=== PATIENT | male | born 1990 | race Caucasian/White ===

== ENCOUNTER 2016-10-08 17:10 | Emergency (ER) | payer MEDICAID ==
[~2016-10-08] VITALS: Ht 149.9 cm; Wt 84.8 kg
[~2016-10-08 17:10] MED LIST: MINOCYCLINE 10100 MG PO; MINOCYCLINE HCL50 MG PO; PRILOSEC OTC20 MG PO; PRILOSEC20 M1 PO
[2016-10-08] MEDS ORDERED: PANTOPRAZOLE SO40 M1 PO (17:34)
--- NOTE | 2016-10-08 17:46 | Emergency Room Report ---
History of Present Illness Time Seen by [id number] Presenting Problem in Triage Pt arrived:Walked Presenting Problem:PT C/O DIARRHEA AND BODYACHES FOLLOWING FOOD IMPACTION SURGERY YESTERDAY MORNING. MOM ALSO STATES THAT HE HAS THROWN UP SOME SINCE SURGERY, ALONG WITH THE DIARRHEA. MOM STATES THAT WHILE AT FOR SURGERY, THEY ALSO DIAGNOSED HIM WITH NICOLE D/T DEHYDRATION. SHE IS CONCERNED ABOUT DEHYDRATION AGAIN WITH THE VOMITING AND DIARRHEA. 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 N Clinical Suspician of Infection? N Mental Status: 1 - Regular (Normal Baseline) Sepsis Risk:Low Sepsis Risk Have you (or family members/close friends) recently traveled outside the [place]? N If Yes, where/when: Have you had exposure to infectious disease within the past month? N TB? Other? Specify: Comment The patient is brought in by mother. He had endoscopic removal of an impacted esophageal food bolus at [facility] yesterday at 2 AM. He was discharged yesterday afternoon. His symptoms had begun 9 days ago with vomiting and some diarrhea. He received an IV infusion on Sunday 5 days ago. He then had a barium swallow done on Sunday 2 days ago, which discovered the food bolus impaction. He was seen in our emergency department and then transferred to [facility] where he had it removed. He was also diagnosed with dehydration and acute kidney injury while in the hospital. Creatinine was 1.9 and had improved to 1.5 yesterday. Mother says he did well all U day yesterday and has been on clear liquids since discharge along with 1 serving of applesauce. Today however he is listless and has malaise. He complains of pain on the bilateral sides of his abdomen. He had an episode of vomiting overnight. He complained of bilateral upper arm pain and leg pain today. He has also developed diarrhea again, which had been resolved since 3 days ago. He had previously been on Prilosec for years because of severe reflux and had had a previous esophageal stretching procedure. His PPI was changed to a different medication while in the hospital. Mother has also given him Zofran at home. ALLERGIES Coded Allergies: cephalexin (Intermediate, I-RASH 10/18/15) Home Medications Reported Medications MINOCYCLINE HCL (Minocycline HCl) 50 MG PO BID Pantoprazole Sodium 40 MG PO DAILY #56 History Medical History General CAD? No Angina: No W[place]: No Hypertension? No Hyperlipidemia? No CHF? No DVT? No PE? No COPD? No Asthma? Yes Anemia? No GERD? Yes Gastric ulcers? No GI Bleed? No Hernia? No Thyroid Problems? No Hypothyroidism? No CVA? No Seizures? No Diabetes? No Renal Insuffiency? No End Stage Renal Disease? No UTI? No Stones? No GB Disease: No Nephritic Syndrome? No Asplenia? No Hepatitis? No Sickle Cell Disease? No Arthritis? No Migraines? No Cataracts? No Glaucoma? No MRSA? No HIV? No TB? No Anxiety? No Depression? No Cancer? No More? Yes Additional hx: MITRAL VALVE PROLAPSE Immunization Hx DT/Tetanus Unknown Surgical Hx Previous Surgery?Y ESOPHAGUS STRETCHED EAR TUBES FOOD IMPACTION Social History Smoking Hx Smoker: Never Smoker Tobacco: No Alcohol Alcohol: No Review of Systems All Other Systems Reviewed and Negative Constitutional malaise Gastrointestinal abdominal pain, diarrhea, vomiting Physical Exam Vital Signs Vital Signs Date Time Temp Pulse Resp B/P Pulse O2 O2 Flow FiO2 Ox Delivery Rate 10/08 1901 98.3 58 16 118/63 98 10/08 1815 18 10/08 1722 96.9 54 16 109/65 98 - WBC >12,000 or <4,000 or 10% bands? 2 or more SIRS Criteria Met? B/P:109/65 MAP:79 Creatinine >2.0? UA output<0.5ml/kg/hr for 2 hrs? Platelet count >100,000? Lactate >2.0mmol/1? INR >1.2 or PTT > than 60 sec? Evidence of Organ Dysfunction? Provider documented clinical suspician of infection? N Sepsis Criteria Count: 0 Sepsis Risk: Low Sepsis Risk General Appearance Down's syndrome Eye Exam - bilateral eye normal exam, bilateral eye PERRL, bilateral eye EOMI Ear, Nose, Throat hearing grossly normal, normal ENT inspection Neck normal inspection, non-tender, supple, full range of motion Respiratory Status Yes: trachea midline, chest symmetrical, non tender chest. No: respiratory distress. Lung Sounds bilateral: normal breath sounds, lungs clear. Cardiovascular normal exam, regular rate/rhythm, no peripheral edema, no gallop, no JVD, no murmur, no rub, normal peripheral pulses Peripheral Pulses Pulses normal Yes Gastrointestinal normal bowel sounds, soft, no organomegaly, tenderness of the lateral sides of his abdomen bilaterally as well as suprapubic/lower abdominal tenderness. 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 Yes Tj was queried for this patient? No Reason not queried - emergent pt cond=no time Results/Orders Laboratory Tests 10/08/161644: Troponin I < 0.02, Amylase 64, Lipase 159 10/08/161644: Sodium 139, Potassium 3.6, Chloride 107, Carbon Dioxide 29, BUN 14, Creatinine 1.5 H, Estimated Creat Clear 89, Estimated GFR (MDRD) 56, Glucose 82, Calcium 9.1, Total Bilirubin 0.6, AST 49 H, ALT 58, Alkaline Phosphatase 61, Total Protein 6.9, Albumin 3.4, Globulin 3.5 H, Albumin/Globulin Ratio 1.0 L, WBC 4.3 L, RBC 4.83, Hgb 17.6, Hct 50.7, MCV 105.2 H, RDW 13.8, Plt Count 176, MPV 7.9, Gran % 60.3, Gran # 2.6, Lymphocytes % 35.1, Monocytes % 4.2, Eosinophils % 0.1, Basophils % 0.4, Lymphocytes # 1.5, Monocytes # 0.2, Eosinophils # 0.0, Basophils # 0.0, PUBS MCHC 34.6, MCH 36.4 H Current Medication Orders Sig/Mackenzie Start time Last Medication Dose Route Stop Time Status Admin Morphine Sulfate 2 MG ONCE ONE 10/08 1814 DC 10/08 IV 10/08 Ondansetron HCl 4 MG ONCE ONE 10/08 1814 DC 10/08 IV 10/08 Morphine Sulfate 0 .STK-MED ONE 10/08 1808 DC .ROUTE Ondansetron HCl 0 .STK-MED ONE 10/08 1808 DC .ROUTE Sodium Chloride 1,000 ML .STK-MED ONE 10/08 1805 DC IV Sodium Chloride 10 ML PRN PRN 10/08 1800 AC IV 10/09 174 Sodium Chloride 1,000 ML .Q1H1M 10/08 1800 DC 10/08 IV 10/08 1900 1811 Sodium Chloride 10 ML PRN PRN 10/08 1800 AC IV 10/09 1747 Orders Procedure Date/time Status DIET-NOTHING BY MOUTH 10/09 B Active ELECTROCARDIOGRAM REQUEST 10/[address] ABD/PELVIS REQ 10/08 180 Complete CHEST(2 VIEWS-NOT PORTABLE) 10/08 180 Active TROPONIN I 10/08 180 Complete LIPASE 10/08 180 Complete AMYLASE 10/08 180 Complete IV SALINE LOCK 10/08 1746 Active CBC WITH AUTO DIFF 10/08 1746 Complete CHEM 12 PROFILE 10/08 1746 Complete 12 LEAD EKG-BESSON (INITIAL) 10/[address] ABD & PELVIS W/O CONTRAST 10/08 UNK Active CM/EKG CM/EKG Comments EKG interpreted by Masoud Morales MD: Rhythm: sinus bradycardia Rate: 54 [place]: LEFT Ectopy: none Conduction: RIGHT bundle branch block pattern ST Segment Changes: none T Wave Changes: none Q Waves: none Left ventricular hypertrophy No evidence of acute ischemia or injury XRAY/CT/US XRAY/CT/US CT abdomen, pelvis Comment CT scan interpreted by radiologist: Air outside of and along the distal esophagus suspicious for perforation. Progress - 7:00 PM: Call received from Dr. Chavarria. He suggests also that the air may be trapped in a thickened mucosal fold of the esophagus and not be a true perforation. 7:05 PM: Case discussed with Dr. Folres, cardiothoracic surgeon at [facility]. She will accept the patient in transfer to the emergency department. She says that they will likely repeat a barium swallow and observe overnight. Mother prefers to transfer by private vehicle. Departure Departure Disposition DC/XFER from ER to [facility]. Hosp Clinical Impression Primary Impression: Abdominal pain Qualifiers: Abdominal location: upper abdomen, unspecified Qualified Code: R10.10 - Upper abdominal pain, unspecified Condition STABLE Referrals JESSICA LIPSCOMB (Family) ED Critical Care Critical Care No
[2016-10-08 17:55] LABS: HEMOGLOBIN 17.6 g/dL (14.1-18.0); LYMPH # 1.5 K/mm3 (0.7-4.5); LYMPH % 35.1 % (10-50)
--- NOTE | 2016-10-08 19:15 | RADIOLOGY REPORT PS360 ---
CT ABD PELVIS W/O CONTRAST COMPARISON: Barium swallow 10/06/2016 HISTORY: Previous history of esophageal stricture with subsequent dilatation now presenting with chest pain following endoscopic removal of a food bolus in the distal esophagus . TECHNIQUE: Multiaxial scans obtained from the lower chest to the pelvic floor and were performed without IV or oral contrast. Sagittal and coronal reformats were evaluated as well. FINDINGS: Beginning on scans at the level of the paul and extending downward to the gastroesophageal junction there is diffuse wall thickening of the distal esophagus. There is a small para lateral channel of air to the esophageal lumen. This raises the possibility of a contained esophageal perforation secondary to the manipulation in removing the impacted food bolus. Another possibility would be air tracking along linear thickened edematous folds due to the irritation of the food being present for a long time prior to removal and/or the endoscopic procedure itself. There is no pneumomediastinum or pneumopericardium. There is mild or borderline cardio megaly. There is no pleural fluid. There may be some minimal atelectasis in the right middle lobe. The liver spleen stomach pancreas and gallbladder appear normal. The adrenal glands are normal. The kidneys are normal in size and there are no calculi and is no obstructive uropathy. Small bowel is normal. There is scattered barium in the ascending and descending colon from the recent contrast study. The urinary bladder and prostate appear normal. IMPRESSION: Diffuse esophageal wall thickening of the lower thoracic esophagus with possible small linear self-contained perforation of the mucosa versus air tracking along the thickened edematous folds. Other nonacute findings as described above.
--- NOTE | 2016-10-08 19:16 | RADIOLOGY REPORT PS360 ---
CHEST(2 VIEWS-NOT PORTABLE) COMPARISON: None HISTORY: Chest and abdominal pain following endoscopic removal of impacted food bolus distal esophagus TECHNIQUE: PA and lateral chest FINDINGS: Lung willis are well expanded and appear clear of infiltrate. There is suggestion of irregular opacity seen to the right heart border which may represent thickened edematous esophageal wall secondary to the apparent long-standing impacted food bolus and/or subsequent endoscopic manipulation. There is no pneumothorax and is no pneumomediastinum mediastinum. IMPRESSION: Question irregular opacities involving the distal esophagus otherwise essentially negative chest
[2016-10-08 19:27] VITALS: BP 118/63
== END 2016-10-08 19:30 | disposition short-term general hospital (02) ==
LOC: ER 17:10
PROVIDERS: Emergency Medicine
DX: R10.10 Upper abdominal pain, unspecified (principal)
CPT/HCPCS: J2405

== ENCOUNTER 2017-07-02 20:21 | Emergency (ER) | payer MEDICAID ==
[~2017-07-02] VITALS: Ht 149.9 cm; Wt 89.8 kg
[~2017-07-02 20:21] MED LIST changes: +PANTOPRAZOLE SO40 M1 PO
[2017-07-02] MEDS ORDERED: MINOCYCLINE 10100 MG PO (20:45)
[2017-07-02] MEDS ORDERED: CLARITIN 10MG T10 MG PO (20:46)
--- OUTSIDE RECORDS SUMMARY | 2017-07-02 20:51 | External Medical Summary Rpt ---
Author Author JOSE R Folres, [employer] Organization [employer] Address Unknown Phone Unavailable Results Urinalysis dipstick W Reflex Microscopic panel in Urine Observa Value Referen Units Interpr Notes Date tion ce etation Range Appeara CLEAR CLEAR No No No Feb 22 nce of informa informa informa 2016 Urine tion in tion in tion in 1:23 PM source source source data data data Bacteri TRACE O No No No Feb 22 a informa informa informa 2016 [Presen tion in tion in tion in 1:23 PM ce] in source source source Urine data data data sedimen t by Light microsc opy Bilirub NEGATIV NEG No No No Feb 22 in E informa informa informa 2016 [Presen tion in tion in tion in 1:23 PM ce] in source source source Urine data data data by Test strip Erythro NEGATIV NEG No No No Feb 22 cytes E informa informa informa 2016 [Presen tion in tion in tion in 1:23 PM ce] in source source source Urine data data data Color YELLOW YELLOW No No No Feb 22 of informa informa informa 2016 Urine tion in tion in tion in 1:23 PM source source source data data data Glucose NEG No No No Feb 22 [Mass/vol informati informati informati 2016 1:23 ume] in on in on in on in PM Urine by source source source Test data data data strip Ketones NEGATIV NEG mg/dL No No Feb 22 E informa informa 2016 [Presen tion in tion in 1:23 PM ce] in source source Urine data data by Automat ed test strip Mucus NEGATIV NEG No No No Feb 22 [Presen E informa informa informa 2016 ce] in tion in tion in tion in 1:23 PM Urine source source source sedimen data data data t by Light microsc opy Nitrite NEGATIV NEG No No No Feb 22 E informa informa informa 2017 [Presen tion in tion in tion in 1:23 PM ce] in source source source Urine data data data by Test strip pH of 5.0 - 8.5 No Normal No Feb 22 Urine informati informati 2017 1:23 on in on in PM source source data data Protein NEG mg/dL No No Feb 22 [Mass/vol informati informati 2017 1:23 ume] in on in on in PM Urine by source source Automated data data test strip Specific 1.005 - No Normal No Feb 22 gravity 1.030 informati informati 2017 1:23 of Urine on in on in PM source source data data Epithel OCC OCC #/hpf No No Feb 22 ial informa informa 2017 cells.s tion in tion in 1:23 PM quamous source source data data [Presen ce] in Urine sedimen t by Microsc opy high power field Urobili 0.2 NEG E.U./dL No No Feb 22 nogen informa informa 2016 [Presen tion in tion in 1:23 PM ce] in source source Urine data data by Test strip Urinalysis dipstick W Reflex Microscopic panel in Urine Observa Value Referen Units Interpr Notes Date tion ce etation Range Appeara CLEAR CLEAR No No No Feb 22 nce of informa informa informa 2017 Urine tion in tion in tion in 1:23 PM source source source data data data Bilirub NEGATIV NEG No No No Feb 22 in E informa informa informa 2016 [Presen tion in tion in tion in 1:23 PM ce] in source source source Urine data data data by Test strip Erythro NEGATIV NEG No No No Feb 22 cytes E informa informa informa 2016 [Presen tion in tion in tion in 1:23 PM ce] in source source source Urine data data data Color YELLOW YELLOW No No No Feb 22 of informa informa informa 2017 Urine tion in tion in tion in 1:23 PM source source source data data data Glucose NEG No No No Feb 22 [Mass/vol informati informati informati 2017 1:23 ume] in on in on in on in PM Urine by source source source Test data data data strip Ketones NEGATIV NEG mg/dL No No Feb 22 E informa informa 2017 [Presen tion in tion in 1:23 PM ce] in source source Urine data data by Automat ed test strip Mucus NEGATIV NEG No No No Feb 22 [Presen E informa informa informa 2016 ce] in tion in tion in tion in 1:23 PM Urine source source source sedimen data data data t by Light microsc opy Nitrite NEGATIV NEG No No No Feb 22 E informa informa informa 2016 [Presen tion in tion in tion in 1:23 PM ce] in source source source Urine data data data by Test strip pH of 5.0 - 8.5 No Normal No Feb 22 Urine informati informati 2017 1:23 on in on in PM source source data data Protein NEG mg/dL No No Feb 22 [Mass/vol informati informati 2016 1:23 ume] in on in on in PM Urine by source source Automated data data test strip Specific 1.005 - No Normal No Feb 22 gravity 1.030 informati informati 2016 1:23 of Urine on in on in PM source source data data Urobili 0.2 NEG E.U./dL No No Feb 22 nogen informa informa 2016 [Presen tion in tion in 1:23 PM ce] in source source Urine data data by Test strip Creatinine [Mass/volume] in Urine Observa Value Referen Units Interpr Notes Date tion ce etation Range Creatinin 20 - 370 mg/dL Normal No Feb 22 e informati 2016 1:23 [Mass/vol on in PM ume] in source Urine data Protein [Presence] in Urine Observa Value Referen Units Interpr Notes Date tion ce etation Range Protein 26.3 0.0 - mg/dL High No Feb 22 15.0 informa 2016 [Presen tion in 1:23 PM ce] in source Urine data Renal function 2000 panel in Serum or Plasma Observa Value Referen Units Interpr Notes Date tion ce etation Range Albumin 3.4 - 5.0 gm/dL Normal No Feb 22 [Mass/vol informati 2016 1:23 ume] in on in PM Serum or source Plasma data Urea 7 - 18 mg/dL Normal No Feb 22 nitrogen informati 2016 1:23 [Mass/vol on in PM ume] in source Serum or data Plasma Calcium 8.5 - mg/dL Normal No Feb 22 [Mass/vol 10.1 inform2016 1:23 ume] in on in PM Serum or source Plasma data Chloride 98 - 107 mmoL/L High No Feb 22 [Moles/vo informati 2016 1:23 lume] in on in PM Serum or source Plasma data Carbon 21.0 - mmoL/L Normal No Feb 22 dioxide, 32.0 informati 2016 1:23 total on in PM [Moles/vo source lume] in data Serum or Plasma Creatinin 0.70 - mg/dL High No Feb 22 e 1.30 informati 2016 1:23 [Mass/vol on in PM ume] in source Serum or data Plasma Estimated >60 ML/MIN No REFERENCE Feb 22 informati RANGE: 2017 1:23 glomerula on in >60 PM r source ML/MIN/1. filtratio data 73 SQUARE n rate METERSIf (GF this patient is -A merican, then multiply theresult by 1.210. Glucose 74 - 106 mg/dL High No Feb 22 [Mass/vol informati 2016 1:23 ume] in on in PM Serum or source Plasma data Potassium 3.5 - 5.1 mmoL/L Normal No Feb 22 inform2016 1:23 [Moles/vo on in PM lume] in source Serum or data Plasma Sodium 136 - 145 mmoL/L Normal No Feb 22 [Moles/vo informati 2016 1:23 lume] in on in PM Serum or source Plasma data Phosphate 2.4 - 4.9 mg/dL Normal No Feb 22 inform2016 1:23 [Moles/vo on in PM lume] in source Unspecifi data ed specimen 25-Hydroxyvitamin D [Mass/volume] in Serum or Plasma Observa Value Referen Units Interpr Notes Date tion ce etation Range 25-Hydrox 30.0 - ng/mL Low Vitamin D Jan 15 yvitamin 100.0 2017 4:31 D deficienc PM [Mass/vol y has ume] in been Serum or defined Plasma by the [place] ofMedicin e and an Endocrine Society practice guideline as alevel of serum 25-OH vitamin D less than 20 ng/mL (1,2).The Endocrine Society went on to further define vitamin Dinsuffic iency as a level between 21 and 29 ng/mL (2).1. IOM (Institut e of Medicine) . 2010. Dietary reference intakes for calcium and D. [place]: [employer] al [employer].2. Feroz MF, Christ NC, Jordan Ren RÍOS, et al.Evalua tion, treatment , and preventio n of vitamin Ddeficien cy: an Endocrine Society clinical practiceg elio. JCEM. 2010; 96(7):191 1-30.Perf ormed at: - [facility] [address] [address] [address] [place], [place] [id number] Electronic Wire[employer]: Anjel Ryan PhD, Phone: [phone] Protein [Presence] in Urine Observa Value Referen Units Interpr Notes Date tion ce etation Range Protein 25.3 0.0 - mg/dL High No Jan 15 15.0 informa 2016 [Presen tion in 4:31 PM ce] in source Urine data Urinalysis dipstick W Reflex Microscopic panel in Urine Observa Value Referen Units Interpr Notes Date tion ce etation Range Appeara CLEAR CLEAR No No No Jan 15 nce of informa informa informa 2017 Urine tion in tion in tion in 4:31 PM source source source data data data Bacteri TRACE O No No No Jan 15 a informa informa informa 2016 [Presen tion in tion in tion in 4:31 PM ce] in source source source Urine data data data sedimen t by Light microsc opy Bilirub NEGATIV NEG No No No Jan 15 in E informa informa informa 2016 [Presen tion in tion in tion in 4:31 PM ce] in source source source Urine data data data by Test strip Erythro NEGATIV NEG No No No Jan 15 cytes E informa informa informa 2016 [Presen tion in tion in tion in 4:31 PM ce] in source source source Urine data data data Color YELLOW YELLOW No No No Jan 15 of informa informa informa 2017 Urine tion in tion in tion in 4:31 PM source source source data data data Glucose NEG No No No Jan 15 [Mass/vol informati informati informati 2016 4:31 ume] in on in on in on in PM Urine by source source source Test data data data strip Ketones NEGATIV NEG mg/dL No No Jan 15 E informa informa 2016 [Presen tion in tion in 4:31 PM ce] in source source Urine data data by Automat ed test strip Mucus NEGATIV NEG No No No Jan 15 [Presen E informa informa informa 2016 ce] in tion in tion in tion in 4:31 PM Urine source source source sedimen data data data t by Light microsc opy Nitrite NEGATIV NEG No No No Jan 15 E informa informa informa 2016 [Presen tion in tion in tion in 4:31 PM ce] in source source source Urine data data data by Test strip pH of 5.0 - 8.5 No Normal No Jan 15 Urine informati informati 2017 4:31 on in on in PM source source data data Protein NEG mg/dL No No Jan 15 [Mass/vol informati informati 2017 4:31 ume] in on in on in PM Urine by source source Automated data data test strip Erythro NONE 0 rbc/hpf No No Jan 15 cytes informa informa 2016 [Presen tion in tion in 4:31 PM ce] in source source Urine data data sedimen t by Light microsc opy Specific 1.005 - No Normal No Jan 15 gravity 1.030 informati informati 2017 4:31 of Urine on in on in PM source source data data Epithel NONE OCC #/hpf No No Jan 15 ial informa informa 2017 cells.s tion in tion in 4:31 PM quamous source source data data [Presen ce] in Urine sedimen t by Microsc opy high power field Urobili 0.2 NEG E.U./dL No No Jan 15 nogen informa informa 2016 [Presen tion in tion in 4:31 PM ce] in source source Urine data data by Test strip Leukocyte O wbc/hpf No No Jan 15 s informati informati 2017 4:31 [#/volume on in on in PM ] in source source Urine data data Urinalysis dipstick W Reflex Microscopic panel in Urine Observa Value Referen Units Interpr Notes Date tion ce etation Range Appeara CLEAR CLEAR No No No Jan 15 nce of informa informa informa 2017 Urine tion in tion in tion in 4:31 PM source source source data data data Bilirub NEGATIV NEG No No No Jan 15 in E informa informa informa 2016 [Presen tion in tion in tion in 4:31 PM ce] in source source source Urine data data data by Test strip Erythro NEGATIV NEG No No No Jan 15 cytes E informa informa informa 2016 [Presen tion in tion in tion in 4:31 PM ce] in source source source Urine data data data Color YELLOW YELLOW No No No Jan 15 of informa informa informa 2017 Urine tion in tion in tion in 4:31 PM source source source data data data Glucose NEG No No No Jan 15 [Mass/vol informati informati informati 2017 4:31 ume] in on in on in on in PM Urine by source source source Test data data data strip Ketones NEGATIV NEG mg/dL No No Jan 15 E informa informa 2016 [Presen tion in tion in 4:31 PM ce] in source source Urine data data by Automat ed test strip Mucus NEGATIV NEG No No No Jan 15 [Presen E informa informa informa 2016 ce] in tion in tion in tion in 4:31 PM Urine source source source sedimen data data data t by Light microsc opy Nitrite NEGATIV NEG No No No Jan 15 E informa informa informa 2016 [Presen tion in tion in tion in 4:31 PM ce] in source source source Urine data data data by Test strip pH of 5.0 - 8.5 No Normal No Jan 15 Urine informati informati 2017 4:31 on in on in PM source source data data Protein NEG mg/dL No No Jan 15 [Mass/vol informati informati 2017 4:31 ume] in on in on in PM Urine by source source Automated data data test strip Specific 1.005 - No Normal No Jan 15 gravity 1.030 informati informati 2017 4:31 of Urine on in on in PM source source data data Urobili 0.2 NEG E.U./dL No No Jan 15 nogen informa informa 2016 [Presen tion in tion in 4:31 PM ce] in source source Urine data data by Test strip CBC W Auto Differential panel in Blood Observa Value Referen Units Interpr Notes Date tion ce etation Range Basophils 0 - 0.2 K/MM3 Normal No Jan 15 informati 2017 4:31 [#/volume on in PM ] in source Blood by data Automated count Basophils 0.1 - 2.0 % Normal No Jan 15 /100 informati 2016 4:31 leukocyte on in PM s in source Blood by data Automated count Eosinophi 0.0 - 0.4 K/mm3 Normal No Jan 15 ls informati 2016 4:31 [#/volume on in PM ] in source Blood by data Automated count Eosinophi 0.1 - % Normal No Jan 15 ls/100 12.0 informati 2016 4:31 leukocyte on in PM s in source Blood by data Automated count Granulocy 1.3 - 8.0 K/mm3 Normal No Jan 15 raysa informati 2016 4:31 [#/volume on in PM ] in source Blood by data Automated count Granulocy 37.0 - % Normal No Jan 15 raysa/100 80.0 informati 2016 4:31 leukocyte on in PM s in source Blood by data Automated count Hematocri 42.0 - % Normal No Jan 15 t [Volume 52.0 informati 2016 4:31 on in PM Fraction] source of Blood data Hemoglobi 14.1 - g/dL Normal No Jan 15 n 18.0 informati 2016 4:31 [Mass/vol on in PM ume] in source Blood data Lymphocyt 0.7 - 4.5 K/mm3 Normal No Jan 15 es informati 2016 4:31 [#/volume on in PM ] in source Unspecifi data ed specimen by Automated count Lymphocyt 10 - 50 % Normal No Jan 15 es inform2016 4:31 [#/volume on in PM ] in source Unspecifi data ed specimen by Automated count Erythrocy 27 - 31.2 pg High No Jan 15 te mean informati 2017 4:31 corpuscul on in PM ar source hemoglobi data n [Entitic mass] Erythrocy 31.8 - g/dl Normal No Jan 15 te mean 35.4 informati 2017 4:31 corpuscul on in PM ar source hemoglobi data n concentra tion [Mass/vol ume] by Automated count Erythrocy 82.2 - fl High No Jan 15 te mean 97.8 informati 2016 4:31 corpuscul on in PM ar volume source [Entitic data volume] by Automated count Monocytes 0.1 - 1.0 K/mm3 Normal No Jan 15 informati 2017 4:31 [#/volume on in PM ] in source Blood by data Automated count Monocytes 1.7 - 9.3 % Normal No Dec 19 /100 informati 2016 4:31 leukocyte on in PM s in source Blood by data Automated count Platelet 7.4 - fl Normal No Jan 15 mean 10.4 informati 2016 4:31 volume on in PM [Entitic source volume] data in Blood by Automated count Platelets 142 - 424 K/mm3 Normal No Jan 15 informati 2016 4:31 [#/volume on in PM ] in source Blood data Erythrocy 4.6 - 6.2 M/mm3 Normal No Jan 15 raysa informati 2016 4:31 [#/volume on in PM ] in source Amniotic data fluid Erythrocy 11.5 - % Normal No Jan 15 te 17.5 informati 2016 4:31 distribut on in PM ion width source [Entitic data volume] by Automated count Leukocyte 4.8 - K/MM3 Normal No Jan 15 s 10.8 informati 2016 4:31 [#/volume on in PM ] in source Blood data
--- OUTSIDE RECORDS SUMMARY | 2017-07-02 20:51 | External Medical Summary Rpt | CCD ---
Demographics Preferred Language Syriac Marital Status Unknown Mormon Affiliation Unknown Race Unknown Ethnic Group Unknown Author Author JOSE R Address Unknown Phone [email or web address] Purpose Continuity of Care Document - through 2016
--- OUTSIDE RECORDS SUMMARY | 2017-07-02 20:51 | External Medical Summary Rpt | CCD ---
Author Author , JOSE R ODELL Address Unknown Phone [email or web address] Care Team Providers Care Keno Dealer Name Role Phone [facility], Unavailable Unavailable [facility], Unavailable [facility]available [facility] Unavailable [facility], [facility] Unavailable Unavailable INC, [facility] Unavailable Unavailable HOSPITAL, [facility], Unavailable Unavailable [facility], Unavailable Unavailable [facility] Unavailable Unavailable [facility], [facility] Unavailable Unavailable [facility], [facility] Unavailable Un[facility], [facility], Unavailable Unavailable PLL[facility], [facility] Unavailable Unavailable HOSPITALS, [facility] Purpose Continuity of Care Document - 05-07-2008 through 2016 Problems Code Diagnosis DOS Provider Status E8339 OTHER 03-01-2017 [place] [facility] OF [facility] EMERGENCY DEPARTMENT PHOSPHORUS METABOLISM E870 HYPEROSMOLA 03-01-2017 [facility] HYPERNATREM FOUNDATION IA E873 ALKALOSIS 03-01-2017 [facility] N183 CHRONIC 03-01-2017 [facility] DISEASE FOUNDATION STAGE 3 MODERATE R233 SPONTANEOUS 02-06-2017 [place] ECCHYMOSES [facility] E559 VITAMIN D 01-22-2017 [facility]IENCY SERV UNSPECIFIED FOUNDATION H6692 OTITIS 01-18-2017 [facility] MEDIA PHYSICIANS UNSPECIFIED GROUP LEFT EAR J301 ALLERGIC 01-18-2017 [facility] RHINITIS PHYSICIANS DUE TO GROUP POLLEN K222 ESOPHAGEAL 11-13-2016 [facility] ANESTHESIA P[facility] K317 POLYP OF 11-13-2016 [facility] STOMACH AND H DUODENUM ANESTHESIA PSC K3189 OTHER 11-13-2016 [facility] DISEASES OF H STOMACH ANESTHESIA AND PSC DUODENUM J111 FLU D/T 10-30-2016 [facility] UNIDENTIFIE PHYSICIAN D FLU VIRUS GROUP W/OTH RESP MANIF J40 BRONCHITIS 10-30-2016 [facility] NOT PHYSICIAN SPECIFIED GROUP ACUTE OR CHRONIC [id number] ACUTE 10-24-2016 [facility] SUPPURATIVE PHYSICIANS OM W/O GROUP RUPT EAR DRUM LT EAR H6982 OTHER SPEC 10-24-2016 [facility] DISORDERS PHYSICIANS EUSTACHIAN GROUP TUBE LT EAR R7989 OTHER SPEC 10-16-2016 [facility] ABNORMAL PHYSICIANS FINDINGS GROUP BLOOD CHEMISTRY E86.0 Dehydration 10-12-2016 I34.1 Nonrheumati 10-12-2016 c mitral (valve) prolapse K21.9 Gastro-esop 10-12-2016 hageal reflux disease without esophagitis N17.9 Acute 10-12-2016 kidney failure, unspecified Q90.9 Down 10-12-2016 syndrome, unspecified R13.10 Dysphagia, 10-12-2016 unspecified T18.120A Food in 10-12-2016 esophagus causing compression of trachea, initial encounter M79.1 Myalgia 10-12-2016 Z86.79 Personal 10-12-2016 history of other diseases of the circulatory system Z87.19 Personal 10-12-2016 history of other diseases of the digestive system R1310 DYSPHAGIA 10-10-2016 [facility] UNSPECIFIED PHYSICIANS GROUP Z0389 ENCOUNTER 10-09-2016 [place] [facility] SERV SUSPCT DZ & FOUNDATION COND RULED OUT M791 MYALGIA 10-08-2016 [facility] Q909 DOWN 10-08-2016 [facility] UNSPECIFIED HOSPITALS R079 CHEST PAIN 10-08-2016 [facility] UNSPECIFIED MEDICAL IMAGING ASS R1010 UPPER 10-08-2016 [facility] UNSPECIFIED R109 UNSPECIFIED 10-08-2016 [facility] ABDOMINAL MEDICAL PAIN IMAGING ASS R1110 VOMITING 10-08-2016 [facility]NSPEC[facility], PLLC R197 DIARRHEA 10-08-2016 [facility] UNSPECIFIED [facility]ICIANS, PLLC [id number] UNS FOREIGN 10-08-2016 [facility] BODY MEDICAL ESOPHAGUS IMAGING ASS CAUS OTH INJ INIT ENC Z8679 PERSONAL 10-08-2016 [facility] DISEASES HOSPITALS CIRCULATORY SYSTEM Z8719 PERSONAL 10-08-2016 [facility] OTHER HOSPITALS DISEASES DIGESTIVE SYSTEM K219 GASTRO-ESOP 10-07-2016 [place] [facility] SERV DISEASE FOUNDATION WITHOUT ESOPHAGITIS N179 ACUTE 10-07-2016 [place] [facility] FAILURE FOUNDATION UNSPECIFIED R1319 OTHER 10-07-2016 [place] [facility] DYSPHAGIA SERV FOUNDATION [id number] FOOD IN 10-07-2016 [place] [facility]OPH[facility]US SERV CAUSING [facility] INJURY INITIAL ENC E860 DEHYDRATION 10-06-2016 [facility] I341 NONRHEUMATI 10-06-2016 [facility] PROLAPSE K5790 DIVERTICULO 10-06-2016 [facility] S[facility] PART MEDICAL UNS W/O IMAGING ASS PERF/ABSC W/O BLEED M5030 OTH 10-06-2016 [place] [facility] CERVICAL [facility] DISC FOUNDATION DEGENERATIO N UNS CERV REGION R4702 DYSPHASIA 10-06-2016 [facility] [id number] FOOD 10-06-2016 [facility] HOSPITALS COMPRESSION TRACHEA INIT ENC K529 NONINFECTIV 10-03-2016 [facility] E PHYSICIANS GASTROENTER GROUP ITIS & COLITIS UNS R1013 EPIGASTRIC 10-03-2016 [facility] PAIN PHYSICIANS GROUP [id number] CELLULITIS 01-27-2016 [facility] OF PHYSICIANS ABDOMINAL GROUP WALL Z0000 ENCOUNTER 10-18-2015 [facility] GEN ADULT [facility] MED EXAM INC W/O ABNORMAL FIND L709 ACNE 09-29-2015 [facility] UNSPECIFIED PHYSICIANS GROUP J209 ACUTE 06-18-2015 [facility] BRONCHITIS [facility] 6829 CELLULITIS 06-08-2014 [facility] AND ABSCESS PHYSICIANS OF GROUP UNSPECIFIED SITE 4619 ACUTE 07-07-2013 [facility] UNSPECIFIED CARE 462 ACUTE 07-07-2013 [facility] PHARYNGIT[facility] CARE 4779 ALLERGIC 07-07-2013 [facility] RHINIT[facility] CAUSE CARE UNSPECIFIED 48215 REFLUX 02-15-2011 [place] [facility] ESOPHAGIT[place] SERV FOUNDATIO 28071 OTHER SPEC 02-15-2011 [place] [facility] GASTRITIS SERV WITHOUT FOUNDATIO MENTION HEMORRHAGE 5533 DIAPHRAGMAT 02-15-2011 [facility] VERONICA W/O [facility] MENTION INC OBSTRUCTION /GANGREN 7580 DOWNS 02-15-2011 [facility] SYNDROME [facility] INC 06665 DYSPHAGIA 02-15-2011 [facility] UNSPECIFIED [facility] HOS[facility] INC 18338 ESOPHAGEAL 01-25-2011 [place] [facility] REFLUX SERV FOUNDATIO R10.9 UNSPECIFIED ABDOMINAL PAIN T18.128A FOOD IN ESOPHAGUS CAUSING OTHER INJURY, INITIAL ENCOUNTER Medications Na ND Rx Da Fi Fi Am Da Di Ph RX Ph St me C No te ll ll ou ys ag ar # ys at rm s nt no ma ic us Or Da si cy ia de te s n re d MO 13 11 12 60 30 00 [place] Ac NO 66 -0 -0 .0 00 L- ti CY 80 6- 1- 00 07 MA ve CL 48 20 20 51 RT IN 45 17 17 16 E 0 51 PH 10 AR 0 MA MG CY CA #5 PS 91 UL E PA 65 10 10 56 28 00 RI Ac NT 16 -0 -2 .0 00 TE ti OP 20 2- 7- 00 01 ve RA 63 20 20 20 AI ZO 70 17 17 20 D LE 9 76 PH AR SO MA D CY DR #3 40 93 8 MG TA B MO 13 09 10 60 30 00 WA Ac NO 66 -2 -2 .0 00 L- ti CY 80 5- 0- 00 07 MA ve CL 48 20 20 51 RT IN 45 17 17 16 E 0 51 PH 10 AR 0 MA MG CY CA #5 PS 91 UL E LO 00 09 10 30 30 00 RI Ac RA 78 -2 -2 .0 00 TE ti TA 15 5- 0- 00 01 ve DI 07 20 20 18 AI NE 70 17 17 90 D 1 02 PH 10 AR MA MG CY TA #3 BL 93 ET 8 PA 65 08 09 56 28 00 RI Ac NT 86 -2 -2 .0 00 TE ti OP 20 5- 2- 00 01 ve RA 56 20 20 19 AI ZO 09 17 17 69 D LE 0 59 PH AR SO MA D CY DR #3 40 93 8 MG TA B MO 13 08 09 60 30 00 WA Ac NO 66 -1 -0 .0 00 L- ti CY 80 4- 8- 00 07 MA ve CL 48 20 20 50 RT IN 45 17 17 38 E 0 22 PH 10 AR 0 MA MG CY CA #5 PS 91 UL E PA 65 07 08 56 28 00 RI Ac NT 86 -2 -1 .0 00 TE ti OP 20 0- 8- 00 01 ve RA 56 20 20 19 AI ZO 09 17 17 24 D LE 0 53 PH AR SO MA D CY DR #3 40 93 8 MG TA B LO 00 07 08 30 30 00 RI Ac RA 78 -1 -1 .0 00 TE ti TA 15 9- 1- 00 01 ve DI 07 20 20 18 AI NE 70 17 17 90 D 1 02 PH 10 AR MA MG CY TA #3 BL 93 ET 8 MO 13 07 08 60 30 00 WA Ac NO 66 -0 -0 .0 00 L- ti CY 80 6- 4- 00 07 MA ve CL 48 20 20 49 RT IN 45 17 17 72 E 0 95 PH 10 AR 0 MA MG CY CA #5 PS 91 UL E AM 66 06 07 20 10 00 RI Ac OX 68 -2 -2 .0 00 TE ti -C 51 2- 1- 00 01 ve LA 00 20 20 18 AI V 10 17 17 90 D 87 0 00 PH 5- AR 12 MA 5 CY MG #3 TA 93 BL 8 ET CI 00 06 07 7. 10 00 RI Ac CA 06 -2 -2 50 00 TE ti OD 58 2- 1- 0 01 ve EX 53 20 20 18 AI 30 17 17 90 D OT 2 01 PH IC AR MA TA CY SP EN #3 SI 93 ON 8 LO 00 06 07 30 30 00 RI Ac RA 78 -2 -2 .0 00 TE ti TA 15 2- 1- 00 01 ve DI 07 20 20 18 AI NE 70 17 17 90 D 1 02 PH 10 AR MA MG CY TA #3 BL 93 ET 8 FL 60 06 07 16 30 00 RI Ac UT 43 -2 -2 .0 00 TE ti IC 20 2- 1- 00 01 ve 26 20 20 18 AI ON 41 17 17 90 D E 5 03 PH CA AR OP MA CY 50 #3 MC 93 G 8 SP RA Y PA 65 06 07 56 28 00 RI Ac NT 86 -2 -1 .0 00 TE ti OP 20 0- 4- 00 01 ve RA 56 20 20 18 AI ZO 09 17 17 86 D LE 0 35 PH AR SO MA D CY DR #3 40 93 8 MG TA B MO 13 06 06 60 30 00 WA Ac NO 66 -0 -3 .0 00 L- ti CY 80 1- 0- 00 07 MA ve CL 48 20 20 49 RT IN 45 17 17 11 E 0 68 PH 10 AR 0 MA MG CY CA #5 PS 91 UL E PA 65 05 06 56 28 00 RI Ac NT 86 -1 -0 .0 00 TE ti OP 20 6- 9- 00 01 ve RA 56 20 20 18 AI ZO 09 17 17 41 D LE 0 73 PH AR SO MA D CY DR #3 40 93 8 MG TA B PA 65 04 04 56 28 00 RI Ac NT 86 -0 -2 .0 00 TE ti OP 20 3- 8- 00 01 ve RA 56 20 20 17 AI ZO 09 17 17 83 D LE 0 40 PH AR SO MA D CY DR #3 40 93 8 MG TA B BE 51 04 04 21 7 00 WA Ac NZ 22 -0 -2 .0 00 L- ti ON 40 3- 8- 00 07 MA ve AT 00 20 20 48 RT AT 16 17 17 03 E 0 31 PH 20 AR 0 MA MG CY CA #5 PS 91 UL E AM 00 03 04 20 10 00 RI Ac OX 78 -2 -2 0. 00 TE ti IC 16 8- 1- 00 01 ve IL 15 20 20 0 17 AI LI 74 17 17 75 D N 6 02 PH 40 AR 0 MA MG CY /5 #3 ML 93 8 TA SP FL 60 03 04 16 30 00 RI Ac UT 43 -2 -2 .0 00 TE ti IC 20 8- 1- 00 01 ve 26 20 20 17 AI ON 41 17 17 75 D E 5 03 PH CA AR OP MA CY 50 #3 MC 93 G 8 SP RA Y CA 59 03 04 10 5 00 RI Ac ED 74 -2 -2 .0 00 TE ti NI 60 8- 1- 00 01 ve SO 17 20 20 17 AI NE 50 17 17 75 D 6 05 PH 20 AR MA MG CY TA #3 BL 93 ET 8 OX 65 03 04 8. 2 00 RI Ac YC 16 -1 -0 00 00 TE ti OD 20 2- 7- 0 01 ve ON 04 20 20 17 AI E 71 17 17 48 D HC 0 20 PH L AR 5 MA MG CY TA #3 BL 93 ET 8 PA 65 03 04 56 28 00 RI Ac NT 86 -1 -0 .0 00 TE ti OP 20 2- 7- 00 01 ve RA 56 20 20 17 AI ZO 09 17 17 48 D LE 0 22 PH AR SO MA D CY DR #3 40 93 8 MG TA B MO 13 03 03 60 30 00 WA Ac NO 66 -0 -3 .0 00 L- ti CY 80 6- 1- 00 07 MA ve CL 48 20 20 47 RT IN 45 17 17 44 E 0 93 PH 10 AR 0 MA MG CY CA #5 PS 91 UL E MO 13 01 02 60 30 00 WA Ac NO 66 -1 -1 .0 00 L- ti CY 80 7- 0- 00 07 MA ve CL 48 20 20 46 RT IN 45 17 17 52 E 0 77 PH 10 AR 0 MA MG CY CA #5 PS 91 UL E 60 09 10 00 12 4 CL 20 MC Ac 25 -2 -0 0. IN 13 KE ti 80 4- 8- 00 IC 68 MO ve 23 20 20 0 E 91 09 09 PH JR 6 AR MA WI CY LL IA M F TA 00 09 10 00 10 5 CL 20 MC Ac MO 00 -2 -0 .0 IN 13 KE ti FL 40 4- 8- 00 IC 69 MO ve U 80 20 20 E 75 08 09 09 PH JR 5 AR MG MA WI CY LL CA IA PS M UL F E AM 00 06 07 00 30 10 CL 19 MC Ac OX 78 -2 -0 .0 IN 61 KE ti IC 12 5- 2- 00 IC 88 MO ve IL 61 20 20 E LI 30 09 09 PH JR N 1 AR 50 MA WI 0 CY LL MG IA M CA F PS UL E AM 66 12 01 00 20 10 CL 18 BE Ac OX 68 -1 -0 .0 IN 40 SS ti -C 51 6- 1- 00 IC 10 ON ve LA 00 20 20 V [address] 87 0 AR EP 5- MA HE 12 CY N 5 A MG TA BL ET 59 12 01 00 24 24 CL 18 BE Ac 70 -1 -0 0. IN 40 SS ti 20 6- 1- 00 IC 11 ON ve 80 20 20 0 [address] 6 AR EP MA HE CY N A CI 00 09 10 00 10 10 CL 17 No Ac CA 06 -2 -0 .0 IN 83 t ti O 58 0- 9- 00 IC 69 Av ve HC 53 20 20 ai 11 08 08 PH la OT 0 AR bl IC MA e CY TA SP EN SI ON Results Labs Lab Lab Date Result Refere Interp Status Commen Order Detail nces retati t Range on Urinalysis dipstick W Reflex Microscopic panel in Urine (02-22-2017 13:23) Bacteri TRACE O complet a 017 ed [Presen 13:23 ce] in Urine sedimen t by Light microsc opy Epithel OCC OCC complet ial 017 ed cells.s 13:23 quamous [Presen ce] in Urine sedimen t by Microsc opy high power field Urinalysis dipstick W Reflex Microscopic panel in Urine (02-22-2017 13:23) Appeara CLEAR CLEAR complet nce of 017 ed Urine 13:23 Bilirub NEGATIV NEG complet in 017 E ed [Presen 13:23 ce] in Urine by Test strip Erythro NEGATIV NEG complet cytes 017 E ed [Presen 13:23 ce] in Urine Color YELLOW YELLOW complet of 017 ed Urine 13:23 Ketones NEGATIV NEG complet 017 E ed [Presen 13:23 ce] in Urine by Automat ed test strip Mucus NEGATIV NEG complet [Presen 017 E ed ce] in 13:23 Urine sedimen t by Light microsc opy Nitrite NEGATIV NEG complet 017 E ed [Presen 13:23 ce] in Urine by Test strip Urobili 0.2 NEG complet nogen 017 ed [Presen 13:23 ce] in Urine by Test strip Protein [Presence] in Urine (02-22-2017 13:23) Protein 26.3 0.0mg High complet 017 /dL - ed [Presen 13:23 15.0m ce] in g/dL Urine Protein [Presence] in Urine (01-15-2017 16:31) Protein 25.3 0.0mg High complet 017 /dL - ed [Presen 16:31 15.0m ce] in g/dL Urine Urinalysis dipstick W Reflex Microscopic panel in Urine (01-15-2017 16:31) Bacteri TRACE O complet a 017 ed [Presen 16:31 ce] in Urine sedimen t by Light microsc opy Erythro NONE 0 complet cytes 017 ed [Presen 16:31 ce] in Urine sedimen t by Light microsc opy Epithel NONE OCC complet ial 017 ed cells.s 16:31 quamous [Presen ce] in Urine sedimen t by Microsc opy high power field Urinalysis dipstick W Reflex Microscopic panel in Urine (01-15-2017 16:31) Appeara CLEAR CLEAR complet nce of 017 ed Urine 16:31 Bilirub NEGATIV NEG complet in 017 E ed [Presen 16:31 ce] in Urine by Test strip Erythro NEGATIV NEG complet cytes 017 E ed [Presen 16:31 ce] in Urine Color YELLOW YELLOW complet of 017 ed Urine 16:31 Ketones NEGATIV NEG complet 017 E ed [Presen 16:31 ce] in Urine by Automat ed test strip Mucus NEGATIV NEG complet [Presen 017 E ed ce] in 16:31 Urine sedimen t by Light microsc opy Nitrite NEGATIV NEG complet 017 E ed [Presen 16:31 ce] in Urine by Test strip Urobili 0.2 NEG complet nogen 017 ed [Presen 16:31 ce] in Urine by Test strip CK SerPl-cCnc (10-08-2016 23:08) CK 574 U/L 49-320 complet SerPl-c 017 ed Cnc 23:08 Procedures Procedure DOS Code Location Performer Comment EXTIRPATI [id number] [facility] ON MATTER 7 HEALTHCAR HEALTHCAR ESOPH E E [place]/ART [facility] OPENING ENDO INSERT [id number] [facility] ENDOTRACH 7 HEALTHCAR HEALTHCAR L AIRWAY E E [place] [facility] VICKIE/ART OPENING ESOPHAGOG 4516 [facility] ROD[facility]TE ASTRODUOD 1 [facility] ENOSCOPY [facility] WITH CLOSED BIOPSY Encounters Encounter Start End Date Code Location Performer Type Date [facility] - 7 7 [facility]PATIEN [facility] - 7 7 [facility]EN [facility] - 7 7 [facility] - 7 7 [facility] - 7 7 [facility]PAT[facility] - 7 7 [facility] - 7 7 [facility] OUTPATIEN E [facility] - 7 7 [facility] INPATIENT E [facility] - 7 7 [facility]PATIEN [facility] - 6 6 [facility]PATIEN [facility] - 6 6 [facility]PATIEN [facility] - 1 1 [facility]
--- OUTSIDE RECORDS SUMMARY | 2017-07-02 20:51 | External Medical Summary Rpt | CCD ---
Author Author , JOSE R ODELL Address Unknown Phone [email or web address] Care Team Providers Care Cargo Operations Agent Name Role Phone [facility], Unavailable Unavailable [facility], Unavailable Unavailable [facility] Unavailable Unavailable ANESTHESIA P[facility], [facility] Unavailable Unavailable INC, [facility] Unavailable Unavailable HOSPITAL, [facility], Unavailable Unavailable [facility], Unavailable Unavailable [facility] Unavailable Unavailable IM[facility]ING [facility], [facility] Unavailable Unavailable F[facility]ATIO, [employer] [facility] Unavailable Unavailable [facility], [facility], Unavailable Unavailable PLLC, [facility] Unavailable Unavailable HOSPITALS, [facility] Purpose Continuity of Care Document - 05-07-2008 through 2016 Problems Code Diagnosis DOS Provider Status E8339 OTHER 03-01-2017 [place] [facility] OF [facility] PHOSPHORUS METABOLISM E870 HYPEROSMOLA 03-01-2017 [place] [facility] SERV HYPERNATREM FOUNDATION IA E873 ALKALOSIS 03-01-2017 [place] [facility] N183 CHRONIC 03-01-2017 [place] [facility] DISEASE [facility] STAGE 3 MODERATE R233 SPONTANEOUS 02-06-2017 [place] ECCHYMOSES [facility] INC E559 VITAMIN D 01-22-2017 [place] [facility] DEFICIENCY SERV UNSPECIFIED FOUNDATION H6692 OTITIS 01-18-2017 [facility] MEDIA PHYSICIANS UNSPECIFIED GROUP LEFT EAR J301 ALLERGIC 01-18-2017 [facility] RHINITIS PHYSICIANS DUE TO GROUP POLLEN K222 ESOPHAGEAL 11-13-2016 [facility] ANESTHESIA PSC K317 POLYP OF 11-13-2016 [facility] STOMACH AND H DUODENUM ANESTHESIA PSC K3189 OTHER 11-13-2016 [facility] DISEASES OF H STOMACH ANESTHESIA AND PSC DUODENUM J111 FLU D/T 10-30-2016 [facility] UNIDENTIFIE PHYSICIAN D FLU VIRUS GROUP W/OTH RESP MANIF J40 BRONCHITIS 10-30-2016 [facility] NOT PHYSICIAN SPECIFIED GROUP ACUTE OR CHRONIC [id number] ACUTE 10-24-2016 [facility] SUPPURATIVE PHYSICIANS OM W/O GROUP RUPT EAR DRUM LT EAR H6982 OTHER SPEC 10-24-2016 [facility] DISORDERS PHYSICIANS EUSTACHIAN GROUP TUBE LT EAR R7989 OTHER SPEC 10-16-2016 [facility] ABNORMAL PHYSICIANS FINDINGS GROUP BLOOD CHEMISTRY E86.0 [...] of the digestive system R1310 DYSPHAGIA 10-10-2016 [facility] UNSPECIFIED PHYSICIANS GROUP Z0389 ENCOUNTER 10-09-2016 [place] [facility]TH SERV SUSPCT DZ & FOUNDATION COND RULED OUT M791 MYALGIA 10-08-2016 [facility] Q909 DOWN 10-08-2016 [facility] UNSPECIFIED HOSPITALS R079 CHEST PAIN 10-08-2016 [facility]NS[facility] MEDICAL IMAGING ASS R1010 UPPER 10-08-2016 [facility]IN PLL[facility] UNSPECIFIED R109 UNSPECIFIED 10-08-2016 [facility] ABDOMINAL MEDICAL PAIN IMAGING ASS R1110 VOMITING 10-08-2016 [facility] PLLC R197 DIARRHEA 10-08-2016 [facility] UNSPECIFIED [facility]IANS, PLLC [id number] UNS FOREIGN 10-08-2016 [facility] BODY MEDICAL ESOPHAGUS IMAGING ASS CAUS OTH INJ INIT ENC Z8679 PERSONAL 10-08-2016 [facility] DISEASES HOSPITALS CIRCULATORY SYSTEM Z8719 PERSONAL 10-08-2016 [facility] OTHER HOSPITALS DISEASES DIGESTIVE SYSTEM K219 GASTRO-ESOP 10-07-2016 [place] [facility] REFLUX SERV DISEASE FOUNDATION WITHOUT ESOPHAGITIS N179 ACUTE 10-07-2016 [place] [facility] FAILURE FOUNDATION UNSPECIFIED R1319 OTHER 10-07-2016 [place] [facility] DYSPHAGIA SERV FOUNDATION [id number] FOOD IN 10-07-2016 [place] [facility] ESOPH[facility]US SERV CAUSING [facility] INJURY INITIAL ENC E860 DEHYDRATION 10-06-2016 [facility] I341 NONRHEUMATI 10-06-2016 [facility] PROLAPSE K5790 DIVERTICULO 10-06-2016 [place] SIS PART MEDICAL UNS W/O IMAGING ASS PERF/ABSC W/O BLEED M5030 OTH 10-06-2016 [place] [facility] CERVICAL [facility] DISC FOUNDATION DEGENERATIO N UNS CERV REGION R4702 DYSPHASIA 10-06-2016 [place] [facility] [id number] FOOD 10-06-2016 [facility] HOSPITALS COMPRESSION TRACHEA INIT ENC K529 NONINFECTIV 10-03-2016 [facility] E PHYSICIANS GASTROENTER GROUP ITIS & COLITIS UNS R1013 EPIGASTRIC 10-03-2016 [facility] PAIN PHYSICIANS GROUP [id number] CELLULITIS 01-27-2016 [facility] OF PHYSICIANS ABDOMINAL GROUP WALL Z0000 ENCOUNTER 10-18-2015 [facility]ULT [facility] MED EXAM INC W/O ABNORMAL FIND L709 ACNE 09-29-2015 [facility] UNSPECIFIED PHYSICIANS GROUP J209 ACUTE 06-18-2015 [facility] BRONCHITIS [facility] 6829 CELLULITIS 06-08-2014 [facility] AND ABSCESS PHYSICIANS OF GROUP UNSPECIFIED SITE 4619 ACUTE 07-07-2013 [facility] UNSPECIFIED CARE 462 ACUTE 07-07-2013 [facility] PHARYNGIT[facility] CARE 4779 ALLERGIC 07-07-2013 [facility] RHINIT[facility] CAUSE CARE UNSPECIFIED 54259 REFLUX 02-15-2011 [place] [facility] ESOPHAGITIS SERV FOUNDATIO 14126 OTHER SPEC 02-15-2011 [place] [facility] GASTRITIS SERV WITHOUT FOUNDATIO MENTION HEMORRHAGE 5533 DIAPHRAGMAT 02-15-2011 [facility]ONICA W/O [facility] MENTION INC OBSTRUCTION /GANGREN 7580 DOWNS 02-15-2011 [facility] SYNDROME [facility] INC 10564 DYSPHAGIA 02-15-2011 [facility] UNSPECIFIED [facility] INC 66732 ESOPHAGEAL 01-25-2011 [place] [facility] REFLUX [facility] FOUNDATIO [...] ia de te s n re d CO 13 11 12 60 30 00 [place] [...] #3 40 93 8 MG TA B CO 13 09 10 60 30 00 WA [...] #3 40 93 8 MG TA B CO 13 08 09 60 30 00 [place] [...] CY TA #3 BL 93 ET 8 CO 13 07 08 60 30 00 [place] [...] 06 07 7. 10 00 RI Ac TN 06 -2 -2 50 00 TE ti [...] 17 90 D E 5 03 PH TN AR OP MA CY 50 #3 MC [...] #3 40 93 8 MG TA B CO 13 06 06 60 30 00 WA [...] 17 75 D E 5 03 PH TN AR OP MA CY 50 #3 MC 93 G 8 SP RA Y TN 59 03 04 10 5 00 RI [...] #3 40 93 8 MG TA B CO 13 03 03 60 30 00 WA Ac NO 66 -0 -3 .0 00 L- ti CY 80 6- 1- 00 07 MA ve CL 48 20 20 47 RT IN 45 17 17 44 E 0 93 PH 10 AR 0 MA MG CY CA #5 PS 91 UL E CO 13 01 02 60 30 00 WA [...] ti 80 4- 8- 00 IC 68 CO ve 23 20 20 0 E 91 09 09 PH JR 6 AR MA [place] CY LL IA M F TA 00 09 10 00 10 5 CL 20 MC Ac CO 00 -2 -0 .0 IN 13 KE ti FL 40 4- 8- 00 IC 69 CO ve U 80 20 20 E 75 08 09 09 PH JR 5 AR MG MA [place] CY LL CA IA PS M UL F E AM 00 06 07 00 30 10 CL 19 MC Ac OX 78 -2 -0 .0 IN 61 KE ti IC 12 5- 2- 00 IC 88 CO ve IL 61 20 20 E LI [...] 00 10 10 CL 17 No Ac TN 06 -2 -0 .0 IN 83 t [...] Procedure DOS Code Location Performer Comment EXTIRPATI [id number] [facility] ESOPH E E [place]/ART [facility] OPEN[facility] ENDO INSERT 3OT12ND [facility] L AIRWAY E E [facility] VICKIE/ART OPENING ESOPHAGOG [address] [place] ASTRODUOD 1 [facility] [place] WITH CLOSED BIOPSY Encounters Encounter Start End Date Code Location Performer Type Date [facility] [place] - 7 7 [facility]EN [facility] [place] - [facility] 7 [facility] [place] - 7 7 [facility] [place] - 7 7 [facility] [place] [facility] 7 7 [facility] [place] [facility] 7 7 [facility] [place] - 7 7 [facility] - 7 7 [facility] INPATIENT E [facility] [place] [facility] 7 7 [facility] [place] - 6 6 [facility] [place] - 6 6 [facility] [place] [facility]
--- OUTSIDE RECORDS SUMMARY | 2017-07-02 20:51 | External Medical Summary Rpt | CCD ---
Demographics Preferred Language Croatian Marital Status Unknown Buddhism Affiliation Unknown Race Unknown Ethnic Group Unknown Author Author JOSE R Address Unknown Phone [email or web address] Purpose Continuity of Care Document - through 2016
--- OUTSIDE RECORDS SUMMARY | 2017-07-02 20:51 | External Medical Summary Rpt | CCD ---
Demographics Preferred Language Mauritanian Marital Status Unknown Taoist Affiliation Unknown Race Unknown Ethnic Group Unknown Author Author , JOSE R ODELL Address Unknown Phone jose Immunization No patient found.
--- OUTSIDE RECORDS SUMMARY | 2017-07-02 20:51 | External Medical Summary Rpt | CCD ---
Demographics Preferred Language Moldovan Marital Status Unknown Rastafarian Affiliation Unknown Race Unknown Ethnic Group Unknown Author Author , JOSE R ODELL Address Unknown Phone jose Immunization No patient found.
--- OUTSIDE RECORDS SUMMARY | 2017-07-02 20:51 | External Medical Summary Rpt ---
Author Author JOSE R Flores, [employer]SE [employer] Organization [employer] [...] been Serum or defined Plasma by the [place] [facility] and an [employer]ocrine Society practice [...] 2010; 96(7):191 1-30.Perf ormed at: - [facility] [address] [place] [id number] [address] [place], [place] [id number] Cube Cutter: Anjel Ryan PhD, Phone: [phone] Protein [Presence] in Urine Observa Value [...]
[2017-07-02 21:23] LABS: HEMOGLOBIN 16.1 g/dL (14.1-18.0); LYMPH # 0.9 K/mm3 (0.7-4.5); LYMPH % 10.7 % (10-50)
[2017-07-02 21:34] LABS: STREP SCREEN (RAPID) NEGATIVE
--- NOTE | 2017-07-02 22:01 | Emergency Room Report ---
History of Present Illness Time Seen by 2045 Presenting Problem in Triage Pt arrived:Walked Presenting Problem:C/O BAD COUGH AND CHEST TIGHTNESS SINCE THIS AM. POOR APPETITE. PRODUCTIVE COUGH WITH YELLOW SPUTUM. WENT TO [facility] TONIGHT AND HAD LOW O2 SAT AND SENT HERE FOR WORKUP. 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 Y Clinical Suspician of Infection? Y Mental Status: 1 - Regular (Normal Baseline) Sepsis Risk:Possible Sepsis Risk Have you (or family members/close friends) recently traveled outside the [place]? N If Yes, where/when: Have you had exposure to infectious disease within the past month? N TB? Other? Specify: Source patient, RN notes reviewed, family, old records Exam Limitations no limitations Comment prod cough this am with no blood and no rash Cardiac Chest Pain Chest pain indicative of cardiac No Timing/Duration this evening Severity moderate ALLERGIES Coded Allergies: cephalexin (From KEFLEX) (07/02/17) Home Medications Reported Medications Pantoprazole Sodium 40 MG PO BID #56 Minocycline Hcl (Minocycline 100MG. Capsule) 100 MG PO BID #60 Loratadine (Claritin 10MG) 10 MG PO DAILY #30 History Medical History General CAD? No Angina: No MS: No Hypertension? No Hyperlipidemia? No CHF? No DVT? No PE? No COPD? No Asthma? Yes Anemia? No GERD? Yes Gastric ulcers? No GI Bleed? No Hernia? No Thyroid Problems? No Hypothyroidism? No CVA? No Seizures? No Diabetes? No Renal Insuffiency? No End Stage Renal Disease? No UTI? No Stones? No GB Disease: No Nephritic Syndrome? No Asplenia? No Hepatitis? No Sickle Cell Disease? No Arthritis? No Migraines? No Cataracts? No Glaucoma? No MRSA? No HIV? No TB? No Anxiety? No Depression? No Cancer? No More? Yes Additional hx: MITRAL VALVE PROLAPSE Immunization Hx DT/Tetanus Unknown Surgical Hx Previous Surgery?Y ESOPHAGUS STRETCHED EAR TUBES FOOD IMPACTION Social History Smoking Hx Smoker: Never Smoker Tobacco: No Alcohol Alcohol: No Drugs none Review of Systems All Other Systems Reviewed and Negative Constitutional denies fever Eyes denies drainage ENT denies: ear pain, epistaxis, throat pain. Respiratory see HPI, cough, shortness of breath, denies wheezing Cardiovascular denies chest pain, denies syncope Gastrointestinal denies abdominal pain, denies diarrhea, denies vomiting Genitourinary denies: dysuria, frequency, hesitancy, hematuria. Musculoskeletal denies back pain, denies joint pain, denies joint swelling, denies neck pain Skin denies rash Psychiatric/Neurological denies headache, denies seizure Physical Exam Vital Signs Vital Signs Date Time Temp Pulse Resp B/P Pulse O2 O2 Flow FiO2 Ox Delivery Rate 07/02 2027 100.7 107 20 131/70 95 - WBC >12,000 or <4,000 or 10% bands? 2 or more SIRS Criteria Met? B/P:131/70 MAP:90 Creatinine >2.0? UA output<0.5ml/kg/hr for 2 hrs? Platelet count >100,000? Lactate >2.0mmol/1? INR >1.2 or PTT > than 60 sec? Evidence of Organ Dysfunction? Provider documented clinical suspician of infection? Y Sepsis Criteria Count: 2 Sepsis Risk: Possible Sepsis Risk General Appearance no apparent distress Eye Exam - bilateral eye PERRL, bilateral eye EOMI Ear, Nose, Throat normal ENT inspection, normal pharynx Neck non-tender Respiratory Status No: respiratory distress. Lung Sounds bilateral: rhonchi. 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 No Results/Orders Laboratory Tests 07/02/17 2100: Lactic Acid 1.1 07/02/17 2100: Sodium 142, Potassium 3.8, Chloride 106, Carbon Dioxide 27, BUN 15, Creatinine 1.8 H, Estimated Creat Clear 78, Estimated GFR (MDRD) 45, Glucose 107 H, Calcium 9.0, Total Bilirubin 0.6, AST 23, ALT 35, Alkaline Phosphatase 69, Total Protein 6.8, Albumin 3.5, Globulin 3.3 H, Albumin/Globulin Ratio 1.1, WBC 8.3, RBC 4.60, Hgb 16.1, Hct 46.2, MCV 100.5 H, RDW 14.1, Plt Count 164, MPV 9.0, Gran % 83.2 H, Gran # 6.9, Lymphocytes % 10.7, Monocytes % 5.1, Eosinophils % 0.8, Basophils % 0.3, Lymphocytes # 0.9, Monocytes # 0.4, Eosinophils # 0.1, Basophils # 0.0, PUBS MCHC 34.8, MCH 35.0 H, Influenza Type A Ag NOT DETECTED, Influenza Type B Ag NOT DETECTED Current Medication Orders Sig/Mackenzie Start time Last Medication Dose Route Stop Time Status Admin Sodium Chloride 10 ML PRN PRN 07/02 2115 AC IV 07/03 2108 Orders Procedure Date/time Status IV SALINE LOCK 07/02 2108 Active CULTURE, THROAT 07/02 2100 Active CHEST(2 VIEWS-NOT PORTABLE) 07/02 2048 Active CULTURE, BLOOD 07/02 2048 Active STREP SCREEN THROAT 07/02 2048 Complete LACTIC ACID 07/02 2048 Complete INFLUENZA A&B ANTIGENS 07/02 2048 Complete CBC WITH AUTO DIFF 07/02 2048 Complete CHEM 12 PROFILE 07/02 2048 Complete XRAY/CT/US XRAY/CT/US XRAY chest XR interpretation by reviewed by me Xray Results normal/NAD Departure Departure Time of Disposition 2200 Disposition DC Home or Self Care(routine) Clinical Impression Primary Impression: Bronchitis Condition STABLE Referrals JESSICA LIPSCOMB (Family) Patient Instructions DI for Cough -- Adult Additional Instructions use meds and see pcp for follow up Discharge Counseling Counseled pt/family regarding diagnosis, test results, medications/RX, follow up needs Prescriptions Current Visit Scripts Prednisone (Prednisone 20MG) 20 MG PO BID #10 TAB Azithromycin (Zithromycin (Z-RICK) 250MG Tab) 250 MG PO DAILY #6 TAB TAKE TWO (2) TABLETS ON DAY 1, THEN ONE (1) TABLET DAY #2 THRU #5 ED Critical Care Critical Care No at 2210
[2017-07-02] MEDS ORDERED: PREDNISONE 20MG20 MG PO (22:10)
[2017-07-02] MEDS ORDERED: ZITHROMAX Z PA250 MG PO (22:10)
[2017-07-02 22:33] VITALS: BP 131/70
--- NOTE | 2017-07-03 05:25 | RADIOLOGY REPORT PS360 ---
CHEST(2 VIEWS-NOT PORTABLE) HISTORY: C/O PRODUCTIVE COUGH,FEVER AND CHEST TIGHTNESS ORDERING PHYSICIAN: Camelia Camilo MD PATIENT AGE: 26 years COMPARISON: 10/08/2016 FINDINGS: The cardiomediastinal silhouette and pulmonary vascularity are within normal limits. The lungs are clear without infiltrates, suspicious nodules, or pleural effusions. No acute bony abnormalities. IMPRESSION: Negative chest, no acute finding
== END 2017-07-02 22:34 | disposition home or self-care (01) ==
LOC: ER 20:21
PROVIDERS: Emergency Medicine
DX: J20.9 Acute bronchitis, unspecified (principal); K21.9 Gastro-esophageal reflux disease without esophagitis; J45.909 Unspecified asthma, uncomplicated; Z88.1 Allergy status to other antibiotic agents